=== PATIENT | female | born 1935 | race Two or more races ===

== ENCOUNTER 2018-10-07 17:44 | Emergency (ER) | payer MEDICARE ==
[~2018-10-07] VITALS: Ht 154.9 cm; Wt 66.7 kg
[~2018-10-07 17:44] MED LIST: ASPI81EC; CLIN150 PO; CONEST.3; LISHYD1012 PO; LOSA25 PO; LOSA50 PO; MECL25 PO; NAPR220 PO; PRAV20 PO; TYLENOL PRN
[2018-10-07] MEDS ORDERED: LOSARTAN POTAS100 MG PO (18:16)
[2018-10-07] MEDS ORDERED: NAPR500 PO (18:17)
== END 2018-10-07 19:17 | disposition home or self-care (01) ==
LOC: ER 17:44
DX: S00.03XA Contusion of scalp, initial encounter (principal); M25.561 Pain in right knee; I10 Essential (primary) hypertension; W01.198A Fall on same level from slipping, tripping and stumbling with subsequent striking against other object, initial encounter; Z88.5 Allergy status to narcotic agent; Z88.8 Allergy status to other drugs, medicaments and biological substances; Z79.899 Other long term (current) drug therapy; I48.0 Paroxysmal atrial fibrillation
CPT/HCPCS: 70450; 73562-RT; 99284-25

== ENCOUNTER 2018-12-13 14:48 | Emergency (ER) | payer MEDICARE ==
[~2018-12-13] VITALS: Ht 152.4 cm; Wt 69.0 kg
[~2018-12-13 14:48] MED LIST changes: +LOSARTAN POTAS100 MG PO; +NAPR500 PO
== END 2018-12-13 17:24 | disposition home or self-care (01) ==
LOC: ER 14:48
DX: G44.309 Post-traumatic headache, unspecified, not intractable (principal)
CPT/HCPCS: 70450; 99284-25

== ENCOUNTER 2019-07-15 10:55 | Emergency (ER) | payer MEDICARE ==
[~2019-07-15] VITALS: Ht 152.4 cm; Wt 66.7 kg
[2019-07-15 12:00] LABS: BASOPHILS ABSOLUTE AUTO 0.06 K/mm3 (0.00-0.23); BASOPHILS PERCENT AUTO 1 % (0-2); EOSINOPHILS ABSOLUTE AUTO 0.11 K/mm3 (0.00-0.68); EOSINOPHILS PERCENT AUTO 2 % (0-6); Hematocrit 40.3 % (33.0-51.0); Hemoglobin 13.4 g/dL (11.5-16.0); IMMATURE GRAN ABSOLUTE AUTO 0.01 K/mm3 (0.00-0.10); IMMATURE GRAN PERCENT AUTO 0 % (0-1); LYMPHOCYTES ABSOLUTE AUTO 1.51 K/mm3 (0.84-5.20); LYMPHOCYTES PERCENT AUTO 24 % (21-46); MONOCYTES PERCENT AUTO 8 % (4-13); Mean Corpuscular HGB 32.3 pg (26.0-34.0); Mean Corpuscular HGB Conc 33.3 g/dL (31.5-36.5); Mean Corpuscular Volume 97 fL (80-100); Mean Platelet Volume 9.9 fL (9.1-12.4); NEUTROPHILS ABSOLUTE AUTO 4.12 K/mm3 (1.96-9.15); NEUTROPHILS PERCENT AUTO 65 % (41-73); Platelet Count 239 K/mm3 (150-400); RDW Coefficient Variation 12.7 % (11.7-14.2); RDW Standard Deviation 45.3 fL (35.1-46.3); Red Blood Cell Count 4.15 M/mm3 (3.80-5.20); White Blood Cell Count 6.31 K/mm3 (4.00-11.30)
[2019-07-15 12:08] LABS: Alanine Aminotransfer (ALT/SGP 17 U/L (12-78); Albumin, Blood 3.7 g/dL (3.4-5.0); Anion Gap 6 mmol/L (6-16); Aspartate Aminotrans (AST/SGOT 21 U/L (12-37); Blood Urea Nitrogen 21 mg/dL (8-24); Bun/Creatinine Ratio 29.6 (12.0-20.0); CO2, Blood 25 mmol/L (21-32); Calcium, Blood 9.1 mg/dL (8.5-10.1); Chloride, Blood 109 mmol/L (98-108); Creatinine, Blood 0.71 mg/dL (0.40-1.00); Glomerular Filtration Rate >60 (60-); Glucose, Blood 101 mg/dL (70-99); Potassium, Blood 4.3 mmol/L (3.5-5.5); Sodium, Blood 140 mmol/L (136-145)
[2019-07-15 12:10] LABS: Albumin/Globulin Ratio 1.1 (0.8-1.8); Alk Phos 116 U/L (50-136); Bilirubin, Total 0.6 mg/dL (0.1-1.0); Globulin, Blood 3.5 g/dL (2.2-4.0); Total Protein, Blood 7.2 g/dL (6.4-8.2)
== END 2019-07-15 14:26 | disposition home or self-care (01) ==
LOC: ER 10:55
PROVIDERS: Emergency Medicine
DX: R29.898 Other symptoms and signs involving the musculoskeletal system (principal); Z88.5 Allergy status to narcotic agent; Z88.8 Allergy status to other drugs, medicaments and biological substances; Z79.899 Other long term (current) drug therapy
CPT/HCPCS: 36415; 70450; 80053; 85025; 93005; 93010; 99284-25

== ENCOUNTER → 2024-05-11 | Outpatient (CLI) | payer OTHER ==
[~2024-05-11] MED LIST changes: +AMOCLA875 PO; +ATORVASTATIN CA20 MG PO; +Aspir 8181 MG PO; +MELATONIN5 M1 PO; +MULTIPLE VITAM1 EACH PO
== END | disposition home or self-care (01) ==
LOC: LAB 14:57 → LAB SHORT 14:57
DX: R35.0 Frequency of micturition (principal)
CPT/HCPCS: 87077; 87086; 87186

== ENCOUNTER → 2024-06-24 | Outpatient (CLI) | payer OTHER | LOC: LAB 15:09 → LAB SHORT 15:09 | DX: R35.0 Frequency of micturition (principal) | CPT/HCPCS: 87077; 87086; 87186 ==

== ENCOUNTER 2024-08-10 00:49 | Inpatient (IN) | payer OTHER ==
[2024-08-10] VITALS (22 sets, daily range): BP systolic 108–192; BP diastolic 53–92
[~2024-08-10] VITALS: Ht 152.4 cm; Wt 59.4 kg
[2024-08-10 01:09] LABS: BASOPHILS ABSOLUTE AUTO 0.04 K/mm3 (0.00-0.23); BASOPHILS PERCENT AUTO 0 % (0-2); EOSINOPHILS ABSOLUTE AUTO 0.07 K/mm3 (0.00-0.68); EOSINOPHILS PERCENT AUTO 1 % (0-6); Hemoglobin 13.8 g/dL (11.5-16.0); IMMATURE GRAN ABSOLUTE AUTO 0.02 K/mm3 (0.00-0.10); IMMATURE GRAN PERCENT AUTO 0 % (0-1); LYMPHOCYTES ABSOLUTE AUTO 1.61 K/mm3 (0.84-5.20); LYMPHOCYTES PERCENT AUTO 17 % (21-46); MONOCYTES ABSOLUTE AUTO 0.67 K/mm3 (0.16-1.47); MONOCYTES PERCENT AUTO 7 % (4-13); Mean Corpuscular HGB 33.4 pg (26.0-34.0); Mean Corpuscular HGB Conc 34.5 g/dL (31.5-36.5); Mean Corpuscular Volume 97 fL (80-100); Mean Platelet Volume 10.1 fL (9.1-12.4); NEUTROPHILS ABSOLUTE AUTO 7.19 K/mm3 (1.96-9.15); NEUTROPHILS PERCENT AUTO 75 % (41-73); Platelet Count 169 K/mm3 (150-400); RDW Coefficient Variation 12.9 % (11.7-14.2); RDW Standard Deviation 45.9 fL (35.1-46.3); Red Blood Cell Count 4.13 M/mm3 (3.80-5.20)
[2024-08-10] MEDS ORDERED: FentaNYL Citrate 50 MCG/ML 2 ML Injection IV PRN (01:10)
[2024-08-10] MEDS ORDERED: Ondansetron HCl 2 MG / ML 2ML Vial IV ONE (01:15)
[2024-08-10 01:38] LABS: Alanine Aminotransfer (ALT/SGP 132 U/L (12-78); Albumin, Blood 4.1 g/dL (3.4-5.0); Albumin/Globulin Ratio 1.2 (0.8-1.8); Alk Phos 168 U/L (50-136); Anion Gap 11 mmol/L (3-11); Aspartate Aminotrans (AST/SGOT 353 U/L (12-37); Bilirubin, Total 1.9 mg/dL (0.1-1.0); Blood Urea Nitrogen 17 mg/dL (8-24); CO2, Blood 26 mmol/L (21-32); Calcium, Blood 10.3 mg/dL (8.5-10.1); Chloride, Blood 106 mmol/L (98-108); Creatinine, Blood 0.85 mg/dL (0.40-1.00); Globulin, Blood 3.5 g/dL (2.2-4.0); Glomerular Filtration Rate 65 (60-); Glucose, Blood 221 mg/dL (70-99); Potassium, Blood 3.9 mmol/L (3.5-5.5); Sodium, Blood 139 mmol/L (136-145); Total Protein, Blood 7.6 g/dL (6.4-8.2)
[2024-08-10 01:59] LABS: Source, Urine Clean Catch
[2024-08-10] MEDS ORDERED: Lactated Ringer's 1,000 ML IV SCH ×4 (02:20→19:50)
[2024-08-10 02:34] LABS: Bilirubin, Urine Neg (Neg); Blood, Urine Neg (Neg); Glucose Qualitative, Urine 3+ (Neg); Ketones, Urine Neg (Neg); Leukocyte Esterase, Urine Neg (Neg); Nitrite, Urine Neg (Neg); Protein, Urine Neg (Neg); Urobilinogen, Urine NORM (Normal)
[2024-08-10 02:54] LABS: Appearance, Urine Clear (Clear); Color, Urine Pale Yellow (P-Yellow)
[2024-08-10] MEDS ORDERED: CefOXitin Sodium 1,000 MG in NS 50 ML IV ONE (04:30)
[2024-08-10] MEDS ORDERED: HydrALAZINE HCl 20 MG / ML 1ML Vial IV PRN ×2 (05:40→19:20)
[2024-08-10] MEDS ORDERED: HYDROmorphone HCl/Pf 1MG SYR IV PRN ×2 (05:40→19:20)
[2024-08-10] MEDS ORDERED: FLU VACC TS2024-25(6MOS UP)/PF 45 MCG/0.5 ML SYRINGE IM ONE (05:40)
[2024-08-10] MEDS ORDERED: Ondansetron HCl 2 MG / ML 2ML Vial IV PRN ×2 (05:40→19:20)
[2024-08-10] MEDS ORDERED: Ketorolac Tromethamine 15mg Vial IV PRN ×2 (06:15→19:25)
[2024-08-10 06:23] LABS: International Normalized Ratio 0.98; Prothrombin Time Results 10.5 Sec (9.7-11.5)
[2024-08-10 06:37] LABS: C-REACTIVE PROTEIN, EXT RANGE <0.290 mg/dL (0.000-0.300); CHOL/HDL RATIO 2.9; Cholesterol 157 mg/dL (50-200); HDL Cholesterol 55 mg/dL (>39); LDL/HDL RATIO 1.3; Lactate Dehydrogenase (Ld),Bld 473 U/L (100-240); Low Density Lipoprotein Chol 70 mg/dL (0-110); Triglycerides 159 mg/dL (30-160); Very Low Density Lipoprot Chol 31 mg/dL (6-32)
[2024-08-10] MEDS ORDERED: ATOR40TA PO (08:12)
[2024-08-10 08:29] LABS: BASOPHILS ABSOLUTE AUTO 0.03 K/mm3 (0.00-0.23); BASOPHILS PERCENT AUTO 1 % (0-2); EOSINOPHILS ABSOLUTE AUTO 0.01 K/mm3 (0.00-0.68); EOSINOPHILS PERCENT AUTO 0 % (0-6); Hematocrit 39.6 % (33.0-51.0); Hemoglobin 13.6 g/dL (11.5-16.0); IMMATURE GRAN ABSOLUTE AUTO 0.02 K/mm3 (0.00-0.10); IMMATURE GRAN PERCENT AUTO 0 % (0-1); LYMPHOCYTES ABSOLUTE AUTO 0.84 K/mm3 (0.84-5.20); LYMPHOCYTES PERCENT AUTO 13 % (21-46); MONOCYTES ABSOLUTE AUTO 0.41 K/mm3 (0.16-1.47); MONOCYTES PERCENT AUTO 7 % (4-13); Mean Corpuscular HGB 33.3 pg (26.0-34.0); Mean Corpuscular HGB Conc 34.3 g/dL (31.5-36.5); Mean Corpuscular Volume 97 fL (80-100); Mean Platelet Volume 9.8 fL (9.1-12.4); NEUTROPHILS ABSOLUTE AUTO 5.04 K/mm3 (1.96-9.15); NEUTROPHILS PERCENT AUTO 79 % (41-73); Platelet Count 175 K/mm3 (150-400); RDW Coefficient Variation 12.8 % (11.7-14.2); RDW Standard Deviation 45.6 fL (35.1-46.3); Red Blood Cell Count 4.09 M/mm3 (3.80-5.20); White Blood Cell Count 6.35 K/mm3 (4.00-11.30)
[2024-08-10 08:47] LABS: Albumin, Blood 3.7 g/dL (3.4-5.0); Albumin/Globulin Ratio 1.1 (0.8-1.8); Bilirubin, Total 1.4 mg/dL (0.1-1.0); Bun/Creatinine Ratio 17.7 (12.0-20.0); Calcium, Blood 9.3 mg/dL (8.5-10.1); Creatinine, Blood 0.79 mg/dL (0.40-1.00); Globulin, Blood 3.4 g/dL (2.2-4.0); Potassium, Blood 3.7 mmol/L (3.5-5.5); Total Protein, Blood 7.1 g/dL (6.4-8.2)
[2024-08-10] MEDS ORDERED: Acetaminophen 325 MG TABLET PO PRN (09:00)
[2024-08-10] MEDS ORDERED: Metoclopramide HCl 5MG / ML 2ML Vial IV PRN ×2 (10:25→19:20)
--- NOTE | 2024-08-10 10:59 | NUR ---
PT C/O LEG CRAMPS R/T SCD'S, REQUESTING THEY BE REMOVED. PT EDUCATED ON THE BENNEFITS OF SCD'S AND OFFER TO LOOSEN. PT INSITENT ON THEM BEING REMOVED COMPLETLY. REMOVED AT APROX 1056, PRIMARY RN NOTIFIED.
[2024-08-10] MEDS ORDERED: Indocyanine Green 25 MG Vial IV ONE (14:30)
[2024-08-10] MEDS ORDERED: CefOXitin Sodium 1,000 MG in NS 50 ML IV SCH (16:00)
[2024-08-10] MEDS ORDERED: Bupivacaine 0.5% HCl 5 MG/ML 30MLVIAL ONE (17:01)
[2024-08-10] MEDS ORDERED: Etomidate 2MG / ML 10ML Vial ONE (17:08)
[2024-08-10] MEDS ORDERED: Phenylephrine HCl 100 MCG/ML-NS 10MLSYR (1MG/10ML) ONE (17:11)
[2024-08-10] MEDS ORDERED: Ondansetron HCl 2 MG / ML 2ML Vial ONE (17:11)
[2024-08-10] MEDS ORDERED: Rocuronium Bromide 10 MG/ML 5ML Injection IV ONE (17:11)
[2024-08-10] MEDS ORDERED: Dexamethasone Sod Phos 10 MG/ML 1ML VIAL ONE (17:11)
[2024-08-10] MEDS ORDERED: propofoL 20 ML IV ONE (17:12)
[2024-08-10] MEDS ORDERED: FentaNYL Citrate 50 MCG/ML 2 ML Injection ONE (17:12)
[2024-08-10] MEDS ORDERED: ePHEDrine Sulfate 50 MG/ML 1ML Injection ONE (18:18)
[2024-08-10] MEDS ORDERED: propofoL 40 ML IV ONE (18:28)
[2024-08-10] MEDS ORDERED: Sugammadex Sodium 200 MG/2ML SDV (100 MG/ML) ONE (18:46)
[2024-08-10] MEDS ORDERED: HYDROmorphone HCl/Pf 1MG SYR ONE (18:53)
[2024-08-10] MEDS ORDERED: ePHEDrine Sulfate 50 MG/ML 1ML Injection IV PRN (19:15)
[2024-08-10] MEDS ORDERED: Albuterol 2.5 MG/3 ML VIAL INH PRN (19:15)
[2024-08-10] MEDS ORDERED: Atropine Sulfate 0.1 MG/ML 10ML SYR IV PRN (19:15)
[2024-08-10] MEDS ORDERED: OxyCODONE HCL 5 MG TAB PO PRN (19:50)
[2024-08-10] MEDS ORDERED: Melatonin 5 MG Tablet PO PRN (19:50)
[2024-08-10] MEDS ORDERED: Atorvastatin 40 MG Tab PO SCH (21:00)
--- NOTE | 2024-08-10 21:30 | NUR ---
ARRIVAL TO ROOM 227 FROM PACU. PT ARRIVED BACK TO ROOM AT 2100. PT NAUSEOUS WITH MOVEMENT AND HAD 1 SMALL UNMEASURED EMESIS. PT VSS ASIDE FROM NOTED ELEVATED BLOOD PRESSURE. PT DENIES PAIN AT THIS TIME AND DECLINED NAUSEA MEDICATION WHEN OFFERED. PT TRANSFERED FROM [facility] VIA SLIDER SHEET. REORIENTED TO ROOM AND CALL LIGHT. BED ALARM SET FOR SAFETY.
[2024-08-11] VITALS (8 sets, daily range): BP systolic 122–140; BP diastolic 47–63
--- NOTE | 2024-08-11 06:26 | NUR ---
SHIFT SUMMARY NOC. PT POD 1 FOR ROBOTIC LAP TIN. PT'S LAP SITES X4 ARE C/D/I. PT VOIDING URINE. DENIES PAIN. PT NAUSEOUS AND HAD 2 VOMIT EPISODES MEDICATED X1 WITH ZOFRAN. PT TOLERATING SMALL SIPS OF CLEARS. PT RESTED WITH EYES CLOSED AND CALL LIGHT IN REACH.
[2024-08-11] MEDS ORDERED: Losartan Potassium 50 MG Tab PO SCH (09:00)
--- NOTE | 2024-08-11 15:15 | NUR ---
Pt. is awake in bed and welcomes my visit. Pt. is pleasant, but is unsettled by not knowing what her plan of care is moving forward. Listen with empathy and a calming presence. Seek to normalize the Pt. experience. Considered matters of vee and belief. Pryaed with Pt. Pt. verbalized gratitude for the spiritual care visit.
--- NOTE | 2024-08-11 18:46 | NUR ---
SHIFT SUMMARY PT IS POD1 LAP TIN. PT IS RESPONSIVE, AMBULATING SBA, DROWSY THIS SHIFT, HAS RESTED PEACEFULLY MOST OF SHIFT. INCISION SITES C/D/I. PT IS TOLERATING MOST CL BUT REPORTED JELLO CAUSED STOMACH PAIN THAT WAS RELIEVED W/ TYLENOL. PT IS CURRENTLY COMFORTABLE AND RESTING. VSS. VOIDING APPROPRIATELY. CALL LIGHT IN REACH, PT CALLING APPROPRIATELY.
[2024-08-12 04:01] VITALS: BP 144/64
[2024-08-12 06:02] LABS: Hematocrit 34.5 % (33.0-51.0); Hemoglobin 11.7 g/dL (11.5-16.0); Mean Corpuscular HGB 33.5 pg (26.0-34.0); Mean Corpuscular HGB Conc 33.9 g/dL (31.5-36.5); Mean Corpuscular Volume 99 fL (80-100); Mean Platelet Volume 10.5 fL (9.1-12.4); Platelet Count 162 K/mm3 (150-400); RDW Coefficient Variation 13.3 % (11.7-14.2); RDW Standard Deviation 48.5 fL (35.1-46.3); Red Blood Cell Count 3.49 M/mm3 (3.80-5.20); White Blood Cell Count 7.59 K/mm3 (4.00-11.30)
[2024-08-12 07:04] LABS: Magnesium, Blood 1.9 mg/dL (1.6-2.4)
[2024-08-12 07:06] LABS: Albumin/Globulin Ratio 1.1 (0.8-1.8); Bilirubin, Total 1.6 mg/dL (0.1-1.0); Bun/Creatinine Ratio 21.5 (12.0-20.0); Calcium, Blood 8.7 mg/dL (8.5-10.1); Creatinine, Blood 0.93 mg/dL (0.40-1.00); Globulin, Blood 2.8 g/dL (2.2-4.0); Potassium, Blood 3.3 mmol/L (3.5-5.5); Total Protein, Blood 5.8 g/dL (6.4-8.2)
[2024-08-12 07:20] VITALS: BP 117/54
--- NOTE | 2024-08-12 07:49 | NUR ---
SHIFT SUMMARY NOC. PT POD 2 FOR LAP TIN. PT DENIES N/V THIS SHIFT. MEDICATED FOR PAIN WITH TYLENOL. PT TOLERATED SIPS OF CLEARS AND SMALL BITES OF SALTINE CRACKERS. PT VOIDING URINE. LAP SITES X 4 C/D/I. PT CALLS AND MAKES NEEDS KNOWN.
[2024-08-12] MEDS ORDERED: Potassium Chloride 20 MEQ TabCR PO ONE (08:50)
[2024-08-12] MEDS ORDERED: Acetaminophen650 M1 PO (12:46)
--- NOTE | 2024-08-12 13:21 | NUR ---
DISCHARGE NOTE: IV DC'D SPOUSE PRESENT AT BEDSIDE FOR DISCHARGE INSTRUCTIONS. PT VERBALIZES UNDERSTANDING. RM CHECKED FOR ALL BELONGINGS. PT WHEELED OUT VIA WHEELCHAIR.
== END 2024-08-12 13:33 | disposition home or self-care (01) | DRG 417 ==
LOC: ER 00:49 → SURS 05:24 → ERHOLD 05:24 → SURS 08:06
PROVIDERS: Emergency Medicine; Family Medicine; Internal Medicine; Surgery; ADMIT Internal Medicine
PROC: BF522Z0 Other Imaging of Gallbladder using Fluorescing Agent, Intraoperative (ICD-10-PCS; 2024-08-10)
PROC: 8E0W4CZ Robotic Assisted Procedure of Trunk Region, Percutaneous Endoscopic Approach (ICD-10-PCS; 2024-08-10)
PROC: 0FT44ZZ Resection of Gallbladder, Percutaneous Endoscopic Approach (ICD-10-PCS; principal; 2024-08-10 17:00)
DX: K80.00 Calculus of gallbladder with acute cholecystitis without obstruction (principal); K85.10 Biliary acute pancreatitis without necrosis or infection; I10 Essential (primary) hypertension; R73.9 Hyperglycemia, unspecified; M06.9 Rheumatoid arthritis, unspecified; Z96.651 Presence of right artificial knee joint; Z98.1 Arthrodesis status; E78.5 Hyperlipidemia, unspecified; Z90.89 Acquired absence of other organs; Z98.890 Other specified postprocedural states; Z88.5 Allergy status to narcotic agent; Z88.8 Allergy status to other drugs, medicaments and biological substances; Z90.710 Acquired absence of both cervix and uterus; Z90.49 Acquired absence of other specified parts of digestive tract; Z79.2 Long term (current) use of antibiotics; Z79.899 Other long term (current) drug therapy; Z85.038 Personal history of other malignant neoplasm of large intestine; Z88.7 Allergy status to serum and vaccine
CPT/HCPCS: 36415; 74174; 74300; 76705; 80053; 80061; 81003; 82947; 83605; 83615; 83690; 83735; 84100; 84484; 85025; 85027; 85610; 85730; 86140; 88304; 93005; 93010; 94760; 94762; 96374; 96375; 99285-25; A9270; J0360; J0694; J1100; J1171; J2371; J2405; J2704; J2765; J3010; J7120; Q9967

== ENCOUNTER → 2024-08-17 | Outpatient (CLI) | payer OTHER ==
[~2024-08-17] MED LIST changes: +ATOR40TA PO; +Acetaminophen650 M1 PO
[2024-08-17 17:05] LABS: Albumin, Blood 3.5 g/dL (3.4-5.0); Albumin/Globulin Ratio 1.1 (0.8-1.8); Bilirubin, Total 0.8 mg/dL (0.1-1.0); Bun/Creatinine Ratio 19.6 (12.0-20.0); Calcium, Blood 8.7 mg/dL (8.5-10.1); Creatinine, Blood 0.82 mg/dL (0.40-1.00); Globulin, Blood 3.3 g/dL (2.2-4.0); Potassium, Blood 3.8 mmol/L (3.5-5.5); Thyroid Stimulating Hormone 0.453 uIU/mL (0.360-4.800); Total Protein, Blood 6.8 g/dL (6.4-8.2)
== END ==
LOC: LAB 15:02 → LAB SHORT 15:02
PROVIDERS: Family Medicine
DX: R53.1 Weakness (principal); R73.03 Prediabetes
CPT/HCPCS: 80053; 83036; 84443